=== PATIENT | female | born 1935 | race Hispanic/Latino ===

== ENCOUNTER 2017-05-31 06:23 | Day surgery (SDC) | payer MEDICARE, OTHER ==
[2017-05-31] MEDS ORDERED: ECOTRIN PO ONE (06:44)
[2017-05-31] MEDS ORDERED: NACL 0.9% 500 ML 500 ML IV SCH (07:00)
[2017-05-31 07:34] LABS: INR 1.28 (0.87-1.13)
[2017-05-31] MEDS ORDERED: HEPARIN 10,000 UNITS/10 ML ONE ×2 (08:13→09:17)
[2017-05-31] MEDS ORDERED: HEPARIN/NS 5000 UNIT/500ML(CATH LAB) 1,000 ML IR ONE (08:13)
[2017-05-31] MEDS ORDERED: CALAN ONE (08:14)
[2017-05-31] MEDS ORDERED: NITROGLYCERIN SYRINGE 0 ML ONE (08:14)
[2017-05-31] MEDS ORDERED: XYLOCAINE 2% INFILTRATI ONE (08:14)
[2017-05-31] MEDS ORDERED: VERSED ONE (08:15)
[2017-05-31] MEDS ORDERED: SUBLIMAZE ONE (08:15)
--- NOTE | 2017-05-31 11:58 | Cardiac Catherization Report ---
LEFT HEART CATHETERIZATION REFERRING PHYSICIANS: Dr. Bahena and Dr. Rendon. INDICATIONS FOR PROCEDURE: The patient is scheduled to undergo a TAVR and she is here for a cardiac catheterization in anticipation of this. She has a complex medical history including coronary artery bypass surgery in 1992, bilateral DVTs, IVC filter, on Coumadin, AAA, status post EVAR in 2004, complicated by rupture in 12/2006, open repair. Most recent echocardiogram shows a valve area of 0.9. This cath is in anticipation of aortic valve replacement. Risks, benefits, and alternatives were discussed at length prior to obtaining informed consent. PROCEDURE IN DETAIL: The patient was brought to catheterization lab in a postabsorptive state, prepped and draped in the sterile fashion. An 8 mL of 2% lidocaine used to anesthetize the right groin. A standard 5-[place] sheath used to cannulate the right common femoral artery via modified Seldinger technique. All exchanges performed to exchange a J-tip guidewire. A JL3.5 catheter used to engage the left main. No dampening or ventricularization. Cineangiography performed in all projections. JR4 catheters were used to engage the right coronary. No dampening or ventricularization. We reattempted to cross the aortic valve with multiple catheters and wires, we were unsuccessful. We used an LCB to nonselectively engage the SVG to the circumflex, it is widely patent. We used a JR4 catheter to engage the left subclavian carefully, advanced over a wire carefully. Selective SIMMONS angiography performed and catheter removed from the subclavian and body of the wire carefully. INTERPRETATION: The right coronary is a moderate-sized vessel, courses the AV groove, distally bifurcates in the posterior and posterolateral branch. There is a 25% proximal stenosis, no significant obstructive disease. The left main is a moderate-sized vessel, no significant disease. LAD is occluded ostially. The left circumflex is a moderate-sized vessel, courses the AV groove, has a 25% stenosis in the mid segment. SIMMONS to LAD is widely patent, diffuse small vessel disease distally, SVG to probably diagonal is widely patent. Again, we were unable to cross the aortic valve despite multiple attempts with multiple wires and catheters. CONCLUSIONS: 1. Severe [place] epicardial coronary disease with a 100% ostial LAD occlusion. 2. Patent SIMMONS to LAD. 3. Patent SVG to diagonal. 4. A 25% mid left circumflex. 5. A 25% proximal right coronary. The patient is already scheduled to undergo a TAVR procedure. It is unclear if the date is scheduled. We will restart Coumadin until this is finalized. Results of the procedure were explained at length to the patient and family. All questions and concerns were addressed. JOB# [id number] KIN/LYN
--- NOTE | 2017-05-31 13:55 | Short Stay Summary ---
Short Stay Documentation Date of service: 05/31/17 - History H&P: obtained from office - Allergies and Medications Current Medications: Allergies ciprofloxacin [From Cipro] Adverse Reaction (Intermediate, Verified 05/31/17 07: 11) Rash ciprofloxacin HCl [From Cipro] Adverse Reaction (Intermediate, Verified 07:11) Rash codeine Adverse Reaction (Intermediate, Verified 05/31/17 07:11) Nausea levofloxacin [From Levaquin] Adverse Reaction (Intermediate, Verified 05/31/17 07:11) Hives Sulfa (Sulfonamide Antibiotics) Adverse Reaction (Intermediate, Verified 07:11) Rash Home Medications Medication Instructions Recorded Confirmed Last Taken Type Amiodarone [Cordarone 200 MG TAB] 200 mg PO DAILY 05/31/17 05/31/17 05/30/17 History 200mg Carvedilol [Coreg] 6.25 mg PO BID 05/31/17 05/31/17 05/30/17 History 6.25mg Enoxaparin [Lovenox] 80 mg SQ Q12HR #6 syringe 05/31/17 Unknown Rx Hydrochlorothiazide [HCTZ] 12.5 mg PO DAILY 05/31/17 05/31/17 05/30/17 History 12.5mg Levothyroxine [Synthroid] 125 mcg PO DAILY 05/31/17 05/31/17 05/30/17 History 12.52mg Simvastatin [Zocor TAB] 40 mg PO HS 05/31/17 05/31/17 05/30/17 History 40mg Warfarin [Coumadin] 5 mg PO DAILY 05/31/17 05/31/17 05/19/17 History 2.5mg Active Medications Sodium Chloride (Nacl 0.9% 500 Ml) 500 mls @ 50 mls/hr IV DIRECT DENA Stop: 05/31/17 16:59 Last Admin: 05/31/17 08:19 Dose: 50 mls/hr - Brief post op/procedure progress note Date of procedure: 05/31/17 Pre-op diagnosis: Post-op diagnosis: same Procedure: C - see cath report Anesthesia: local Estimated blood loss: none Condition: stable - Disposition Condition at discharge: Stable Disposition: [id number] TO HOME OR SELFCARE - Discharge Diagnoses (1) Aortic stenosis Status: Chronic Qualifiers: Cardiac valve disease etiology: C (2) CAD (coronary artery disease) Status: Chronic Qualifiers: Coronary Disease-Associated Artery/Lesion type: C [place] vs. transplanted heart: N Associated angina: A (3) Hx of CABG Status: Chronic (4) Atrial fibrillation Status: Chronic Qualifiers: Atrial fibrillation type: A (5) History of DVT (deep vein thrombosis) Status: Chronic (6) History of pulmonary embolism Status: Chronic (7) Anticoagulated on Coumadin Status: Chronic Short Stay Discharge Plan Activity: advance as tolerated Diet: low fat, low cholesterol, low salt Wound: open to air, keep clean and dry, per your surgeon's advice Additional Instructions: Pt to resume Coumadin tomorrow at most recent home regimen. Pt to be discharged home on lovenox BID x 3 days (starting tomorrow) to be taken in conjunction with Coumadin given subtherapeutic INR. Pt to check INR on Wednesday and have INR addressed per remote coagulation clinic. Follow up with: MIRTHA TABOR MD [Staff Physician] - 7 Days Prescriptions: Enoxaparin [Lovenox] 80 mg SQ Q12HR #6 syringe
[2017-05-31 15:29] VITALS: BP 135/69
== END 2017-05-31 16:26 | disposition home or self-care (01) ==
LOC: CATHLABREC 06:23
PROVIDERS: ATTEND Internal Medicine
DX: I10 Essential (primary) hypertension (principal); I25.10 Atherosclerotic heart disease of native coronary artery without angina pectoris; E78.5 Hyperlipidemia, unspecified; I48.91 Unspecified atrial fibrillation; E03.9 Hypothyroidism, unspecified; Z95.1 Presence of aortocoronary bypass graft; Z88.6 Allergy status to analgesic agent; Z88.1 Allergy status to other antibiotic agents; Z88.8 Allergy status to other drugs, medicaments and biological substances; Z88.2 Allergy status to sulfonamides; Z79.01 Long term (current) use of anticoagulants; Z79.82 Long term (current) use of aspirin
CPT/HCPCS: 36415; 84132; 85347; 85610; 93005; 93010; 93459; 99152; 99153; C1769; C1894; J1644; J2250; J3010; J7040; Q9967